=== PATIENT | male | born 1975 | race Caucasian/White ===

== ENCOUNTER → 2020-10-15 | Outpatient (CLI) | payer OTHER ==
[~2020-10-15] MED LIST: FAMO20TA5 PO; PRM25T PO
--- NOTE | 2020-10-15 18:02 | Diagnostic Imaging Report ---
INDICATION: Chronic right foot pain. FINDINGS: AP, oblique, and lateral views of the right foot are obtained. There is evidence of pes cavus on the non-weightbearing image. There also appears to be midfoot varus. No acute fracture or malalignment is identified. IMPRESSION: Probable pes cavus which could be confirmed on weightbearing image. Otherwise, no acute abnormality is identified. Dictated by: Dictated on workstation # [id number]
--- NOTE | 2020-10-15 18:02 | Diagnostic Imaging Report ---
INDICATION: Chronic left elbow pain. 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 This may be the result of old injury and osteonecrosis. There is marginal spurring about the proximal radius and ulna with mild ossific debris along the ventral aspect of the joint. No acute fracture is seen. 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 Dictated by: Dictated on workstation # [id number]
== END ==
LOC: RAD 16:00
PROVIDERS: ATTEND Family Medicine
DX: M79.671 Pain in right foot (principal); M25.522 Pain in left elbow
CPT/HCPCS: 73080; 73630

== ENCOUNTER 2020-12-31 05:36 | Outpatient (CLI) | payer OTHER ==
[~2020-12-31] VITALS: Ht 185.4 cm; Wt 74.5 kg
[2020-12-31] MEDS ORDERED: ASCO500C18 PO (13:47)
[2020-12-31] MEDS ORDERED: MV-M1TAB20 PO (13:47)
[2020-12-31] MEDS ORDERED: RESV100C PO (13:47)
== END 2020-12-31 15:44 | disposition home or self-care (01) ==
LOC: PREOP 05:36
PROVIDERS: ATTEND Surgery
DX: Z01.818 Encounter for other preprocedural examination (principal)

== ENCOUNTER 2021-01-07 12:33 | Day surgery (SDC) | payer OTHER ==
[~2021-01-07] VITALS: Ht 185.4 cm; Wt 74.5 kg
[~2021-01-07 12:33] MED LIST changes: +ASCO500C18 PO; +MV-M1TAB20 PO; +RESV100C PO
[2021-01-07] MEDS ORDERED: LACTATED RINGERS 1,000 ML IV ONE (12:38)
[2021-01-07] MEDS ORDERED: LACTATED RINGERS 1,000 ML IV STA (12:48)
[2021-01-07 13:18] VITALS: BP 127/79
--- NOTE | 2021-01-07 14:02 | Progress Note-Pre Operative ---
Pre-Operative Progress Note H&P Reviewed The H&P was reviewed, patient examined and no changes noted. Date Seen by Provider: Jan 07, 2021 Time Seen by Provider: 14:00 Date H&P Reviewed: Jan 07, 2021 Time H&P Reviewed: 14:00 Pre-Operative Diagnosis: screening colonoscopy RICARDO LEBLANC DO Jan 07, 2021 14:02
[2021-01-07] MEDS ORDERED: MIDAZOLAM 2 MG/2 ML (VERSED) VIAL ONE (15:07)
[2021-01-07] MEDS ORDERED: PROPOFOL INJECTION 50 ML IV ONE (15:07)
--- NOTE | 2021-01-07 15:38 | Discharge Inst-Simple/Standard ---
Discharge Inst-Standard Patient Instructions/Follow Up Plan of Care/Instructions/FU: 10 years Fly unless family hx of colon cancer then 5 years. Any issues before then be seen at that time. Activity as Tolerated: Yes Discharge Diet: Regular Diet (high fiber) RICARDO LEBLANC DO Jan 07, 2021 15:38
[2021-01-07 15:40] VITALS: BP 110/57
--- NOTE | 2021-01-07 15:42 | Progress Note-Post Operative ---
Post-Operative Progess Note Surgeon (s)/Grounds Maintenance Manager (s) Surgeon RICARDO LEBLANC DO Grounds Maintenance Manager: na Pre-Operative Diagnosis screening colonoscopy Post-Operative Diagnosis Normal colon Procedure & Operative Findings Date of Procedure 01/07/21 Procedure Performed/Findings Colonoscopy Anesthesia Type per FIELD CANE SCALER Estimated Blood Loss Estimated blood loss (mL): None Specimens/Packing Specimens Removed None RICARDO LEBLANC DO Jan 07, 2021 15:42
[2021-01-07 15:45] VITALS: BP_SYST 107; BP_SYST 98; BP_DIAS 53; BP_DIAS 54
[2021-01-07 16:15] VITALS: BP 119/89
[2021-01-07 16:18] VITALS: BP 119/89
--- NOTE | 2021-01-07 16:24 | Anesthesia-General Post-Op ---
MAC Patient Condition Mental Status/LOC: Same as Preop Cardiovascular: Satisfactory Nausea/Vomiting: Absent Respiratory: Satisfactory Pain: Controlled Complications: Absent Post Op Complications Complications None Follow Up Care/Instructions Patient Instructions None needed. Anesthesiology Discharge Order Discharge Order Patient is doing well, no complaints, stable vital signs, no apparent adverse anesthesia problems. No complications reported per nursing. NELL LIU CRNA Jan 07, 2021 16:24
--- NOTE | 2021-01-07 23:46 | OPERATIVE REPORT ---
DATE OF SERVICE: 01/07/2021 PREOPERATIVE DIAGNOSIS: Screening colonoscopy. POSTOPERATIVE DIAGNOSIS: Normal colon. PROCEDURE: Colonoscopy. SURGEON: Ricardo Bill DO ANESTHESIA: Per REFINISHER. ESTIMATED BLOOD LOSS: None. COMPLICATIONS: None. INDICATIONS: The patient is a 45-year-old male needing screening colonoscopy. He understands risks and benefits of procedure and wishes to proceed. Consent was signed in the chart. DESCRIPTION OF PROCEDURE: The patient was taken to the endoscopy suite, placed in left lateral recumbent position. Timeout was performed. Digital rectal exam was performed. No palpable polyps, masses or ulcerations. Scope was inserted in the rectum, advanced all the way to cecum with minimal difficulty. Prep was adequate. Scope was then slowly retracted back. No polyps, masses or ulcerations within the cecum, ascending, transverse, descending and sigmoid colon. Within the rectum, scope was retroflexed noting no other pathology. Scope was returned to its normal position, slowly withdrawn until completely removed. The patient tolerated procedure well without any complications, taken to recovery room in stable condition. RECOMMENDATIONS: The patient will need repeat colonoscopy in 10 years unless family history of colon cancer, which would then be 5 years. If any issues before that be seen at that time. Job ID: [id number] DocumentID: [id number] Dictated Date: 01/07/2021 15:43:55 Fundraising Assistant Date: 01/07/2021 23:45:56 Dictated By: RICARDO BILL DO
== END 2021-01-07 16:20 | disposition home or self-care (01) ==
LOC: ENDO 12:33
PROVIDERS: ATTEND Surgery
DX: Z12.11 Encounter for screening for malignant neoplasm of colon (principal); Z85.47 Personal history of malignant neoplasm of testis; Z79.899 Other long term (current) drug therapy; Z90.89 Acquired absence of other organs

== ENCOUNTER 2021-06-27 05:01 | Emergency (ER) | payer OTHER ==
[~2021-06-27] VITALS: Ht 185.4 cm; Wt 84.6 kg
[~2021-06-27 05:01] MED LIST changes: -AZIT250T12 PO; -CEFD300C3 PO; -RT-ALBUINH IH
[2021-06-27 05:24] LABS: BASOPHILS # (AUTO) 0.1 10^3/uL (0.0-0.1); BASOPHILS % (AUTO) 0 % (0-10); EOSINOPHILS # (AUTO) 0.1 10^3/uL (0.0-0.3); EOSINOPHILS % (AUTO) 1 % (0-10); HEMATOCRIT 41 % (40-54); HEMOGLOBIN 14.1 g/dL (13.3-17.7); LYMPHOCYTES # (AUTO) 1.9 10^3/uL (1.0-4.0); LYMPHOCYTES % (AUTO) 17 % (12-44); MEAN CORPUSCULAR HEMOGLOBIN 31 pg (25-34); MEAN CORPUSCULAR HGB CONC 35 g/dL (32-36); MEAN CORPUSCULAR VOLUME 90 fL (80-99); MEAN PLATELET VOLUME 9.3 fL (9.0-12.2); MONOCYTES # (AUTO) 0.8 10^3/uL (0.0-1.0); MONOCYTES % (AUTO) 7 % (0-12); NEUTROPHILS # (AUTO) 8.7 10^3/uL (1.8-7.8); NEUTROPHILS % (AUTO) 75 % (42-75); PLATELET COUNT 314 10^3/uL (130-400); WHITE BLOOD COUNT 11.7 10^3/uL (4.3-11.0)
--- NOTE | 2021-06-27 05:24 | ED Chest Pain ---
General Chief Complaint: Chest Pain Stated Complaint: CP Source: patient, family () Exam Limitations: no limitations (MELVIN WALDROP MD) History of Present Illness Date Seen by Provider: June 27, 2021 Time Seen by Provider: 05:08 Initial Comments Patient is a 45-year-old male who presents to the emergency department today with a chief complaint of low right-sided anterior chest pain. Patient states that he had a little discomfort around 830 or 9:00 last night and it is gradually worsened, he woke up at midnight with significantly worse pain. It hurts to take a deep breath and hurts to move. He states it is worse with bending over. He took 2 low-dose aspirin at about midnight and the pain has steadily increased. He feels short of breath. He is not nauseous. He has had previous appendectomy and is abdomen as well as orchiectomy. He denies recent cough or URI symptoms. He states he may have had a slight fever earlier this evening. He has never had pain like this before. Denies any recent prolonged immobility or long car trips. No personal or family history of blood clots. He has a very remote smoking history, 20 years ago. Does not take any daily medications. Morphine intolerant, causes itching. Nothing makes the pain any better. All other review of systems reviewed and negative except as stated. 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 NTG SL TANK PROCESSOR: No Associated Symptoms: shortness of breath (MELVIN WALDROP MD) Allergies and Home Medications Allergies Coded Allergies: morphine (Verified Allergy, Unknown, 08/02/07) Patient Home Medication List Home Medication List Reviewed: Yes (MELVIN WALDROP MD) Ascorbic Acid (Vitamin C) 500 Mg Capsule.er, 500 MG PO DAILY, (Reported) Entered as Reported by: LIBORIO EPPS on 12/31/20 1347 Famotidine (Pepcid) 20 Mg Tablet, 1 EACH PO BID Prescribed by: MARILOU SAAVEDRA on 12/12/106 Mv-Mn/Iron/FA/Herbal Cmplx#190 (Vitamin D3 Complete Caplet) 1 Each Tablet, 1 EACH PO DAILY, (Reported) Entered as Reported by: LIBORIO EPPS on 12/31/20 1347 Promethazine Hcl (Phenergan 25 Mg) 25 Mg Tablet, 1 TAB PO QID PRN Prescribed by: MARILOU SAAVEDRA on 12/12/102107 Resveratrol (Resveratrol) 100 Mg Capsule, 100 MG PO DAILY, (Reported) Entered as Reported by: LIBORIO EPPS on 12/31/20 1347 Review of Systems Review of Systems Constitutional: see HPI EENTM: No Symptoms Reported Respiratory: Shortness of Air Cardiovascular: Chest Pain Gastrointestinal: No Symptoms Reported Genitourinary: No Symptoms Reported Musculoskeletal: no symptoms reported Skin: no symptoms reported Psychiatric/Neurological: Anxiety (MELVIN WALDROP MD) All Other Systems Reviewed Negative Unless Noted: Yes (MELVIN WALDROP MD) Past Ytnkmrc-Kmddgv-Kjvael Hx Patient Social History Tobacco Use?: No Use of E-Cig and/or Vaping dev: No Substance use?: No Alcohol Use?: No Pt feels they are or have been: No (MELVIN WALDROP MD) Immunizations Up To Date Influenza Vaccine Up-to-Date: No; Not Current First/Initial COVID19 Vaccinat: NO Second COVID19 Vaccination Elliott: NO Third COVID19 Vaccination Date: NO (MELVIN WALDROP MD) Seasonal Allergies Seasonal Allergies: No (MELVIN WALDROP MD) Past Medical History Surgeries: Yes Adenoidectomy, Appendectomy, Testicular, Tonsillectomy Respiratory: No Cardiac: No Neurological: No Reproductive Disorders: No Genitourinary: No Gastrointestinal: No Musculoskeletal: No Endocrine: No HEENT: No Testicular Did You Recieve Any Treatments: Yes What Type of Treatment Did You: Surgical Intervention Psychosocial: No Integumentary: No Blood Disorders: No (MELVIN WALDROP MD) Physical Exam Vital Signs Vital Signs - First Documented 06/27/21 05:17 Temp 36.4 Pulse 92 Resp 16 B/P (MAP) 139/90 (106) Pulse Ox 92 O2 Delivery Room Air (QUETA HOFF) Vital Signs Capillary Refill : (MELVIN WALDROP MD) Height, Weight, BMI Height: '" Weight: lbs. oz. kg; 21.67 BMI Method:Stated General Appearance: WD/WN, Anxious, Moderate Distress HEENT: PERRL/EOMI Neck: Normal Inspection Respiratory: Lungs Clear, Normal Breath Sounds, No Accessory Muscle Use, No Respiratory Distress, Other (demonstrates pleuritic cp; holding right lower ribs) Cardiovascular: Regular Rate, Rhythm, Normal Peripheral Pulses Gastrointestinal: Non Tender, Soft Extremity: Normal Inspection, Normal Range of Motion, Non Tender, No Calf Tenderness Neurologic/Psychiatric: Alert, Oriented x3, No Motor/Sensory Deficits, Normal Mood/Affect, warm in worker II-XII Norm as Tested Skin: Normal Color, Warm/Dry (MELVIN WALDROP MD) Progress/Results/Core Measures Results/Orders Lab Results Laboratory Tests Test 06/27/21 05:14 06/27/21 05:55 Range/Units White Blood Count 11.7 H 4.3-11.0 10^3/uL Red Blood Count 4.53 4.30-5.52 10^6/uL Hemoglobin 14.1 13.3-17.7 g/dL Hematocrit 41 40-54 % Mean Corpuscular Volume 90 80-99 fL Mean Corpuscular Hemoglobin 31 25-34 pg Mean Corpuscular Hemoglobin Concent 35 32-36 g/dL Red Cell Distribution Width 12.3 10.0-14.5 % Platelet Count 314 130-400 10^3/uL Mean Platelet Volume 9.3 9.0-12.2 fL Immature Granulocyte % (Auto) 0 % Neutrophils (%) (Auto) 75 42-75 % Lymphocytes (%) (Auto) 17 12-44 % Monocytes (%) (Auto) 7 0-12 % Eosinophils (%) (Auto) 1 0-10 % Basophils (%) (Auto) 0 0-10 % Neutrophils # (Auto) 8.7 H 1.8-7.8 10^3/uL Lymphocytes # (Auto) 1.9 1.0-4.0 10^3/uL Monocytes # (Auto) 0.8 0.0-1.0 10^3/uL Eosinophils # (Auto) 0.1 0.0-0.3 10^3/uL Basophils # (Auto) 0.1 0.0-0.1 10^3/uL Immature Granulocyte # (Auto) 0.0 0.0-0.1 10^3/uL Sodium Level 136 135-145 MMOL/L Potassium Level 4.1 3.6-5.0 MMOL/L Chloride Level 101 98-107 MMOL/L Carbon Dioxide Level 21 21-32 MMOL/L Anion Gap 14 5-14 MMOL/L Blood Urea Nitrogen 14 7-18 MG/DL Creatinine 1.10 0.60-1.30 MG/DL Estimat Glomerular Filtration Rate 84 BUN/Creatinine Ratio 13 Glucose Level 105 70-105 MG/DL Calcium Level 9.6 8.5-10.1 MG/DL Corrected Calcium 9.2 8.5-10.1 MG/DL Total Bilirubin 0.9 0.1-1.0 MG/DL Aspartate Amino Transf (AST/SGOT) 18 5-34 U/L Alanine Aminotransferase (ALT/SGPT) 21 0-55 U/L Alkaline Phosphatase 70 40-136 U/L Troponin I < 0.028 <0.028 NG/ML Total Protein 7.3 6.4-8.2 GM/DL Albumin 4.5 3.2-4.5 GM/DL Lipase 38 8-78 U/L SARS-CoV-2 RNA (RT-PCR) Not Detected Not Detecte (QUETA HOFF) Medications Given in ED Current Medications Medications Dose Ordered Sig/Elsi Route Start Time Stop Time Status Last Admin Dose Admin Ketorolac Tromethamine 30 mg ONCE ONCE IVP 06/27/21 05:30 06/27/21 05:31 DC 06/27/21 05:24 30 MG Orphenadrine Citrate 60 mg ONCE ONCE IV 06/27/21 06:00 06/27/21 06:01 DC 06/27/21 06:03 60 MG (QUETA HOFF) Vital Signs/I&O 06/27/21 05:17 Temp 36.4 Pulse 92 Resp 16 B/P (MAP) 139/90 (106) Pulse Ox 92 O2 Delivery Room Air (QUETA HOFF) Progress Progress Note : Time: 05:54 Progress Note Rechecked patient after Toradol, he is feeling improved. He still has a mild ache in the right anterior chest. He also complains of aching discomfort in his bilateral lower extremities. His tells me that their teenage daughter was at home yesterday from school with flulike symptoms. She did do an at-home COVID test on him at midnight and it was negative. We are going to swab him for a PCR just on the off chance this is an atypical presentation of COVID. He did feel little subjective fever earlier in the evening. Am adding a little bit of Norflex for his pain management. Labs are normal, mildly elevated white count at a little over 11. Otherwise negative troponin, negative liver functions. Chest x-ray is clear. Vital signs remained stable. Oxygenation is 97% on room air. (MELVIN WALDROP MD) Progress Note : Progress Note Assumed care of the patient at shift change. He just received a dose of Norflex. He is pending a results from a COVID swab PCR. Suspect viral infection with pleuritic sounding chest pain. I agree with above documented history and physical exam. (QUETA HOFF) Initial ECG Impression Date: June 27, 2021 Initial ECG Impression Time: 05:10 Initial ECG Rate: 89 Initial ECG Rhythm: Normal Sinus Initial ECG Intervals MA 187 QRS 105 QTc 4 7 Comment No ectopy, no ST segment elevation or depression (MELVIN WALDROP MD) Diagnostic Imaging Diagonstic Imaging: Xray Plain Films/CT/US/NM/MRI: chest Comments [facility] [place] NAME: SHWETA DEMPSEY Robin [facility] REC#: [id number] PT STATUS: REG ER : 1975 PHYSICIAN: MELVIN WALDROP MD ADMIT DATE: 06/27/21/ER Draft Date of Exam:06/27/21 CHEST 1 VIEW, AP/PA ONLY INDICATION: right sided chest pain. TECHNIQUE: Single view chest 5:38 AM. CORRELATION STUDY: None FINDINGS: The heart size, mediastinal configuration and pulmonary vascularity are within normal limits. The lungs are clear with no consolidating infiltrate. There is no significant effusion or pneumothorax. IMPRESSION: 1. Negative appearing single view chest. Dictated on workstation # [id number] Dict: 06/27/2144 Trans: 06/27/2144 DO [id number] Interpreted by: LALO CANELA DO Electronically signed by: (MELVIN WALDROP MD) Departure Impression Primary Impression: Pleuritic chest pain Disposition: 01 HOME, SELF-CARE Condition: Improved Departure-Patient Inst. Decision time for Depature: 05:56 (MELVIN WALDROP MD) Referrals: LYNN VALLEJO MD [facility] PAULA PETERSON MD (PCP/Family) Primary Care Physician Patient Instructions: Pleuritic Chest Pain ED Add. Discharge Instructions: Naproxen 2 tablets twice a day as needed for pain. Symptoms should resolve in a week or 2 if it is pleuritic chest pain from an irritation of your chest wall as causes, and made by allergens, bits of dirt or debris, viral infections etc. Follow-up with Dr. Vallejo in the next 2 to 4 weeks to discuss risk stratification for heart disease. Return to the ER promptly for crushing chest pain not responding to pain medici yarely, shortness of air or other worrisome symptoms All discharge instructions reviewed with patient and/or family. Voiced underst anding. Copy Copies To 1: LYNN VALLEJO MD [facility]; PAULA PETERSON MD, KATHRYN M MD June 27, 2021 05:24 QUETA HOFF June 27, 2021 06:12
[2021-06-27] MEDS ORDERED: KETOROLAC 30 MG/ML VIAL IVP ONE (05:30)
[2021-06-27 05:31] LABS: ALBUMIN 4.5 GM/DL (3.2-4.5); CHLORIDE 101 MMOL/L (98-107); POTASSIUM 4.1 MMOL/L (3.6-5.0); SODIUM 136 MMOL/L (135-145)
[2021-06-27 05:33] LABS: CALCIUM 9.6 MG/DL (8.5-10.1)
[2021-06-27 05:34] LABS: GLUCOSE 105 MG/DL (70-105); TOTAL PROTEIN 7.3 GM/DL (6.4-8.2)
[2021-06-27 05:35] LABS: CARBON DIOXIDE 21 MMOL/L (21-32)
[2021-06-27 05:36] LABS: BILIRUBIN,TOTAL 0.9 MG/DL (0.1-1.0)
[2021-06-27 05:37] LABS: ALKALINE PHOSPHATASE 70 U/L (40-136); GFR ESTIMATED 84
[2021-06-27 05:38] LABS: BUN/CREATININE RATIO 13
[2021-06-27 05:40] LABS: ALANINE AMINOTRANSFERASE 21 U/L (0-55)
[2021-06-27 05:41] LABS: LIPASE 38 U/L (8-78)
--- NOTE | 2021-06-27 05:45 | Diagnostic Imaging Report ---
INDICATION: right sided chest pain. TECHNIQUE: Single view chest 5:38 AM. CORRELATION STUDY: None FINDINGS: The heart size, mediastinal configuration and pulmonary vascularity are within normal limits. The lungs are clear with no consolidating infiltrate. There is no significant effusion or pneumothorax. IMPRESSION: 1. Negative appearing single view chest. Dictated by: Dictated on workstation # [id number]
[2021-06-27] MEDS ORDERED: ORPHENADRINE 60 MG/2 ML (NORFLEX) AMP (ED ONLY) IV ONE (06:00)
[2021-06-27 06:59] VITALS: BP 101/73
== END 2021-06-27 07:08 | disposition home or self-care (01) ==
LOC: EDUNIT# 05:01 → ER 05:04
DX: R07.81 Pleurodynia (principal); Z20.822 Contact with and (suspected) exposure to COVID-19
CPT/HCPCS: 36415; 71045; 80053; 83690; 84484; 85025; 85379; 87636; 93005

== ENCOUNTER → 2021-06-27 | Outpatient (CLI) | payer OTHER ==
[~2021-06-27] MED LIST changes: +AZIT250T12 PO; +CEFD300C3 PO; +RT-ALBUINH IH
== END ==
LOC: LAB 09:16
PROVIDERS: ATTEND Family Medicine
DX: R07.9 Chest pain, unspecified (principal)
CPT/HCPCS: 36415; 85379

== ENCOUNTER 2021-07-02 13:50 | Emergency (ER) | payer OTHER ==
[~2021-07-02 13:50] MED LIST changes: -AZIT250T12 PO; -CEFD300C3 PO; -RT-ALBUINH IH
--- NOTE | 2021-07-02 14:16 | ED Respiratory ---
General Chief Complaint: Respiratory Problems Stated Complaint: SOB Nursing Triage Note: PT AMB TO [facility] WITH WITH C/O WORSENING PLEURITIC CHEST PAIN AND WORSENING SOB SINCE WEDNESDAY. PT SEEN HERE ON 06/27 FOR SAME ISSUES. PT GOT CT SCAN TODAY Source: patient Exam Limitations: no limitations History of Present Illness Date Seen by Provider: July 02, 2021 Time Seen by Provider: 14:05 Initial Comments Patient is a 45-year-old male who comes back to the emergency department after a visit on June 27 with a chief complaint of severe right upper chest pain. Patient was seen by me on 06/27, diagnosed with pleurisy. I did do basic labs with a D-dimer and a chest x-ray. He was treated with pain medications/anti- inflammatories. He had a mildly elevated white blood cell count at 11.7 the rest of his labs were unremarkable.. D-dimer was undetectable. Chest x-ray was read by radiology as clear. Patient continued to take pain medications and foll owed up with his primary care physician earlier in the week, he comes over from radiology after having a CT scan of the chest without contrast today. CT showed findings consistent with right upper lobe pneumonia, small right and trace left pleural effusions. Also likely mild reactive lymphadenopathy in the right hilum and mediastinum. He has had a decreased appetite but absolutely no complaints of fevers or chills, cough or other URI symptoms. He does have a remote history of testicular cancer back in 2006. He does not do follow-ups with oncology any longer. is very concerned and is questioning a CT with contrast. We teto ked about this and I do not believe there is an emergent reason to do a CT with contrast especially in light of the current contrast shortages. He is not hypoxic, tachycardic or in respiratory distress. He is not hypotensive. If there is concern for recurrence of testicular cancer/metastatic disease this can be worked up on an outpatient basis All other review of systems reviewed and negative except as stated. Allergies and Home Medications Allergies Coded Allergies: morphine (Verified Allergy, Unknown, 08/02/07) Patient Home Medication List Home Medication List Reviewed: Yes Albuterol Sulfate (Proair Hfa) 1 Puff Puff, 2 PUFF IH Q4H Prescribed by: MELVIN WALDROP on 07/02/21 7622 Ascorbic Acid (Vitamin C) 500 Mg Capsule.er, 500 MG PO DAILY, (Reported) Entered as Reported by: LIBORIO EPPS on 12/31/201346 Azithromycin (Azithromycin) 250 Mg Tablet, 250 MG PO UD Prescribed by: MELVIN WALDROP on 07/02/211441 Cefdinir (Cefdinir) 300 Mg Capsule, 300 MG PO BID Prescribed by: MELVIN WALDROP on 07/02/21 144 Famotidine (Pepcid) 20 Mg Tablet, 1 EACH PO BID Prescribed by: MARILOU SAAVEDRA on 12/12/102107 Mv-Mn/Iron/FA/Herbal Cmplx#190 (Vitamin D3 Complete Caplet) 1 Each Tablet, 1 EACH PO DAILY, (Reported) Entered as Reported by: LIBORIO EPPS on 12/31/201346 Promethazine Hcl (Phenergan 25 Mg) 25 Mg Tablet, 1 TAB PO QID PRN Prescribed by: MARILOU SAAVEDRA on 12/12/102107 Resveratrol (Resveratrol) 100 Mg Capsule, 100 MG PO DAILY, (Reported) Entered as Reported by: LIBORIO EPPS on 12/31/201346 Review of Systems Review of Systems Constitutional: no symptoms reported, see HPI EENTM: no symptoms reported Respiratory: no symptoms reported Cardiovascular: chest pain (Right upper) Genitourinary: no symptoms reported Musculoskeletal: no symptoms reported Skin: no symptoms reported Psychiatric/Neurological: Anxiety All Other Systems Reviewed Negative Unless Noted: Yes Past Hnpaeho-Fhsssy-Lhfdbn Hx Patient Social History Tobacco Use?: No Use of E-Cig and/or Vaping dev: No Substance use?: No Alcohol Use?: Yes Alcohol type: Beer Alcohol Frequency: Rarely Pt feels they are or have been: No Immunizations Up To Date First/Initial COVID19 Vaccinat: NO Second COVID19 Vaccination Elliott: NO Third COVID19 Vaccination Date: NO Seasonal Allergies Seasonal Allergies: No Past Medical History Surgery/Hospitalization HX: HX OF TESTICULAR CANCER Surgeries: Yes Adenoidectomy, Appendectomy, Testicular, Tonsillectomy Respiratory: No Cardiac: No Neurological: No Reproductive Disorders: No Genitourinary: No Gastrointestinal: No Musculoskeletal: No Endocrine: No HEENT: No Testicular Did You Recieve Any Treatments: Yes What Type of Treatment Did You: Surgical Intervention Psychosocial: No Integumentary: No Blood Disorders: No Physical Exam Vital Signs - First Documented 07/02/21 13:55 Temp 36.1 Pulse 71 Resp 16 B/P (MAP) 108/72 (84) Capillary Refill : Height: '" Weight: lbs. oz. kg; 24.00 BMI Method:Stated General Appearance: WD/WN, no apparent distress Eyes: Bilateral Eye Normal Inspection, Bilateral Eye PERRL, Bilateral Eye EOMI HEENT: PERRL/EOMI Neck: normal inspection Respiratory: lungs clear, normal breath sounds, no respiratory distress, no acc essory muscle use, other (pleuritic pain with deep breath; pulse ox shows 91% when the patient is falling asleep. As he is awake and talking he is up to 96 to 97%) Cardiovascular: regular rate, rhythm Gastrointestinal: normal bowel sounds, non tender, soft Extremities: normal range of motion, non-tender, normal inspection, no pedal edema, normal capillary refill Neurologic/Psychiatric: alert, normal mood/affect, oriented x 3, other ((a little somnolent from benzo and pain med - but able to hold a conversation and makes ssense)) Skin: warm/dry, pallor Progress/Results/Core Measures Suspected Sepsis SIRS Temperature: Pulse: 71 Respiratory Rate: 16 Blood Pressure 108 /72 Mean: 84 Results/Orders Vital Signs/I&O 07/02/21 13:55 Temp 36.1 Pulse 71 Resp 16 B/P (MAP) 108/72 (84) Capillary Refill : Blood Pressure Mean: 84 Progress Note : Time: 14:39 Progress Note Discussed with Discussed with Dr Peterson. We will put him on dual therapy cefdinir and azithromycin. We will also give him an inhaler. Dr. Peterson would like to see him in the early part of next week. I have discussed the plan of care with the patient and his who is at the bedside. She is apprehensive but comfortable with the plan of care. All questions are sought and answered Departure Impression Primary Impression: Pneumonia Qualified Codes: J18.9 - Pneumonia, unspecified organism Disposition: 01 HOME, SELF-CARE Condition: Stable Departure-Patient Inst. Decision time for Depature: 14:40 Referrals: PAULA PETERSON MD (PCP/Family) Primary Care Physician Patient Instructions: Community-Acquired Pneumonia, Adult (DC) Add. Discharge Instructions: Start your antibiotics today. You will be on 2 different ones. The cefdinir will be twice daily for 7 days (start this one TOMORROW). The azithromycin will be 2 pills on day 1, then 1 pill daily for the following 4 days. Albuterol inhaler, 2 puffs every 4-6 hours as needed for shortness of breath. Continue the pain medications as prescribed by Dr Peterson. Space the xanax out from the pain meds. Always take ibuprofen with a little food. Dr Peterson would like to see you in clinic at the first part of next week. Please come back to the emergency department for any worsening symptoms of shortness of breath, high fever or other emergent concerning symptoms. Scripts Albuterol Sulfate (PROAIR HFA) 1 Puff Puff 2 PUFF IH Q4H, #1 EA 1 PUFF = 90 MCG Prov: MELVIN WALDROP MD 07/02/21 Azithromycin (Azithromycin) 250 Mg Tablet 250 MG PO UD, #6 TAB TAKE 2 TABLETS ON DAY ONE THEN TAKE 1 TABLET DAILY FOR FOUR MORE DAYS Prov: MELVIN WALDROP MD 07/02/21 Cefdinir (Cefdinir) 300 Mg Capsule 300 MG PO BID, #14 CAP 0 Refills Prov: MELVIN WALDROP MD 07/02/21 MELVIN WALDROP MD July 02, 2021 14:16
[2021-07-02] MEDS ORDERED: CEFD300C3 PO (14:42)
[2021-07-02] MEDS ORDERED: AZIT250T12 PO (14:42)
[2021-07-02] MEDS ORDERED: RT-ALBUINH IH (14:42)
[2021-07-02] MEDS ORDERED: cefTRIAXone 1,000 MG VIAL IM ONE (15:00)
[2021-07-02] MEDS ORDERED: LIDOCAINE 1% INJ 20 ML VIAL INJ ONE (15:00)
[2021-07-02 15:30] VITALS: BP 108/72
== END 2021-07-02 15:30 | disposition home or self-care (01) ==
LOC: EDUNIT# 13:50 → ER 13:52
DX: J18.9 Pneumonia, unspecified organism (principal)
CPT/HCPCS: 99284

== ENCOUNTER → 2021-07-02 | Outpatient (CLI) | payer OTHER ==
[~2021-07-02] MED LIST changes: +AZIT250T12 PO; +CEFD300C3 PO; +RT-ALBUINH IH
--- NOTE | 2021-07-02 13:53 | Diagnostic Imaging Report ---
PROCEDURE: CT chest without contrast. TECHNIQUE: Multiple contiguous axial images were obtained through the chest without the use of intravenous contrast. Auto Exposure Controls were utilized during the CT exam to meet ALARA standards for radiation dose reduction. INDICATION: 45-year-old male, severe shortness of breath and right upper chest pain and tightness for nearly one week. History of testicular cancer. CORRELATION: CT chest 08/24/2014. FINDINGS: Evaluation is limited given lack of intravenous contrast. There is suggestion of distorted, soft tissue fullness in the right hilum as well as mediastinum, likely reflective of mild perhaps reactive lymphadenopathy. Extensive calcified granulomas in bilateral terrence as well as mediastinum. The heart size is unremarkable. Thoracic aorta normal in contour. Rather prominent consolidation in the anterior basilar aspect of the right upper lobe with air bronchograms consistent with pneumonia. Left lung is clear of infiltrate. Scattered calcified granulomas are present in both lung castanon. Small right and trace left pleural effusion. The visualized portions of the upper abdomen are unremarkable. The visualized osseous structures demonstrate no acute findings. IMPRESSION: 1. Findings consistent with right upper lobe pneumonia. Small right and trace left pleural effusion. Follow-up imaging to resolution is recommended, as the possibility of a central obstructive mass cannot be excluded at this time. 2. Likely mildly reactive lymphadenopathy in right hilum and mediastinum. Dictated by: Dictated on workstation # [id number]
== END ==
LOC: RAD 11:15
PROVIDERS: ATTEND Family Medicine
DX: J90 Pleural effusion, not elsewhere classified (principal); Z85.47 Personal history of malignant neoplasm of testis
CPT/HCPCS: 71250

== ENCOUNTER → 2021-08-26 | Outpatient (CLI) | payer OTHER ==
[~2021-08-26] MED LIST changes: +AZIT250T12 PO; +CEFD300C3 PO; +RT-ALBUINH IH
--- NOTE | 2021-08-26 08:20 | Diagnostic Imaging Report ---
CT CHEST WO TECHNIQUE: Multiple contiguous axial images were obtained through the chest without the use of intravenous contrast. All CT scans use one or more of the following dose optimizing techniques: automated exposure control, MA and/or KvP adjustment based on a patient size and exam type, or iterative reconstruction. INDICATION: Follow-up abnormal CT chest for right upper lobe consolidations. Pneumonia. COMPARISON: 07/02/2021 FINDINGS: Lungs and airway: No abnormality of the trachea. The right upper lobe consolidation has resolved. There are few scattered calcified pulmonary nodules that are stable and indicative of old granulomatous infection. No suspicious pulmonary nodules have developed. Pleura: No pleural effusion or pneumothorax. Heart and mediastinum: Thyroid is normal. No supraclavicular or axillary lymphadenopathy. No mediastinal or hilar lymphadenopathy. Calcified mediastinal and hilar lymph nodes are compatible with old granulomatous infection. Normal heart size without pericardial effusion. Normal caliber thoracic aorta. Upper abdomen: No acute abnormality in the upper abdomen. Musculoskeletal: No worrisome focal osseous lesion. IMPRESSION: 1. Resolution of right upper lobe pneumonia. 2. No new or concerning abnormality would require further workup or surveillance imaging. Dictated by: Dictated on workstation # [id number]
== END ==
LOC: RAD 07:45
PROVIDERS: ATTEND Family Medicine
DX: J18.1 Lobar pneumonia, unspecified organism (principal)
CPT/HCPCS: 71250